=== PATIENT | female | born 1940 | race Two or more races ===

== ENCOUNTER → 2017-03-01 | Outpatient (CLI) | payer MEDICARE | END | disposition home or self-care (01) | LOC: CFH 13:25 | PROVIDERS: ATTEND Family Medicine | DX: R92.1 Mammographic calcification found on diagnostic imaging of breast (principal) | CPT/HCPCS: G0206 ==

== ENCOUNTER → 2018-06-25 | Outpatient (CLI) | payer MEDICARE | END | disposition home or self-care (01) | LOC: CFH 14:18 | PROVIDERS: ATTEND Family Medicine | DX: Z12.31 Encounter for screening mammogram for malignant neoplasm of breast (principal); Z12.2 Encounter for screening for malignant neoplasm of respiratory organs; I25.10 Atherosclerotic heart disease of native coronary artery without angina pectoris; F17.200 Nicotine dependence, unspecified, uncomplicated | CPT/HCPCS: 77067; G0297 ==

== ENCOUNTER 2019-09-10 05:07 | Emergency (ER) | payer MEDICARE ==
[~2019-09-10] VITALS: Ht 144.8 cm; Wt 53.6 kg
[2019-09-10 05:09] VITALS: BP 111/54
--- NOTE | 2019-09-10 05:32 | NUR ---
PT TO ED WITH C/O RIGHT SHOULDER PAIN AND SWELLING. REPORTS SHE HAD TWO FALLS IN THE PAST TWO DAYS WHERE SHE CAUGHT HERSELF WITH HER HANDS. REPORTS MINIMAL MOVEMENT OF RIGHT ARM D/T PAIN. PULSE AND SENSORY INTACT OF RIGHT UPPER EXTREMITY.
--- NOTE | 2019-09-10 06:46 | NUR ---
SLING APPLIED AND TRAMADOL GIVEN PER EMAR.
== END 2019-09-10 07:03 | disposition home or self-care (01) ==
LOC: ED 05:32
DX: S70.02XA Contusion of left hip, initial encounter (principal); M19.011 Primary osteoarthritis, right shoulder; E78.00 Pure hypercholesterolemia, unspecified; I10 Essential (primary) hypertension; W01.0XXA Fall on same level from slipping, tripping and stumbling without subsequent striking against object, initial encounter; Y93.89 Activity, other specified; Y92.89 Other specified places as the place of occurrence of the external cause; Y99.8 Other external cause status
CPT/HCPCS: 99283

== ENCOUNTER 2019-10-18 10:57 | Outpatient (CLI) | payer MEDICARE | END 2019-10-18 23:59 | disposition home or self-care (01) | LOC: CFH 10:57 | PROVIDERS: ATTEND Family Medicine | DX: Z12.31 Encounter for screening mammogram for malignant neoplasm of breast (principal) | CPT/HCPCS: 77067 ==

== ENCOUNTER → 2020-11-13 | Outpatient (CLI) | payer MEDICARE ==
[~2020-11-13] MED LIST: ACET-1600 PO; AMLO1CAP PO; CITA40TA5 PO; DIPH25CA61 PO; DIPH28.33 TP; LOVA20TA2 PO; METH49ST TD; MV M PO; SENN1TAB67 PO; SINEX PO; [UNRECOGNIZED DRUG - OTHER] TP
[2020-11-13 12:14] LABS: BASOPHILS % (AUTO) 1 % (0-1); EOSINOPHILS % (AUTO) 4 % (1-7); LYMPHOCYTES % (AUTO) 37 % (22-44); MEAN CORPUSCULAR HEMOGLOBIN 32.4 pg (27.0-34.8); MEAN CORPUSCULAR HGB CONC 33.6 g/dL (32.4-35.8); MEAN PLATELET VOLUME 8.5 fL (7.4-10.4); MONOCYTES % (AUTO) 7 % (2-9); NEUTROPHILS % (AUTO) 51 % (42-75); PLATELET COUNT 314 x10^3/uL (130-400); RED BLOOD COUNT 4.02 x10^6/uL (3.82-5.3); RED CELL DISTRIBUTION WIDTH 13.9 % (9.6-15.2)
[2020-11-13 12:18] LABS: MICROSCOPIC NOT IND
[2020-11-13 12:19] LABS: ALANINE AMINOTRANSFERASE 30 U/L (12-78); ALBUMIN 3.9 g/dL (3.4-5.0); ANION GAP 4 mmol/L (5-15); CALCIUM 9.2 mg/dL (8.5-10.1); CHLORIDE 108 mmol/L (98-107); CREATININE 1.05 mg/dL (0.55-1.02)
[2020-11-13 12:21] LABS: ALKALINE PHOSPHATASE 89 U/L (45-117); BILIRUBIN,TOTAL 0.4 mg/dL (0.2-1.0); TOTAL PROTEIN 8.2 g/dL (6.4-8.2)
== END | disposition home or self-care (01) ==
LOC: STAR 10:20
PROVIDERS: ATTEND Obstetrics & Gynecology
DX: Z01.818 Encounter for other preprocedural examination (principal); N81.4 Uterovaginal prolapse, unspecified
CPT/HCPCS: 36415; 80053; 81003; 85025; 93005

== ENCOUNTER 2020-11-17 10:13 | Observation (INO) | payer MEDICARE ==
[~2020-11-17] VITALS: Ht 144.8 cm; Wt 54.2 kg
[2020-11-17] MEDS ORDERED: EPINEPHRINE 1 MG/ML, 1ML ONE (11:05)
[2020-11-17] MEDS ORDERED: FLUORESCEIN SODIUM 500 MG/5 ML ONE (11:05)
[2020-11-17] MEDS ORDERED: LIDOCAINE/PF 1%, 30ML ONE (11:05)
[2020-11-17] MEDS ORDERED: CHLORHEXIDINE 15 ML UDC ONE (11:16)
[2020-11-17] MEDS ORDERED: CHLORHEXIDINE 15 ML UDC PO ONE (11:30)
[2020-11-17] MEDS ORDERED: LACTATED RINGERS 1,000 ML IV SCH (11:30)
[2020-11-17 11:37] VITALS: BP 113/68
[2020-11-17] MEDS ORDERED: EPHEDRINE 50 MG/ML, 1ML ONE (12:04)
[2020-11-17] MEDS ORDERED: ESTROGENS CONJUGATED VAG CRM 0.625MG/1G, 30GM ONE (14:14)
[2020-11-17] MEDS ORDERED: KETOROLAC 30 MG/1 ML ONE (14:21)
[2020-11-17] MEDS ORDERED: LIDOCAINE-MPF 2% ,5ML ONE (14:21)
[2020-11-17] MEDS ORDERED: NEOSTIGMINE 1 MG/ML, 10ML ONE (14:21)
[2020-11-17] MEDS ORDERED: PROPOFOL 10 MG/ML, 20ML ONE (14:21)
[2020-11-17] MEDS ORDERED: ONDANSETRON 2MG/ML, 2ML ONE (14:21)
[2020-11-17] MEDS ORDERED: DEXAMETHASONE 4 MG/ML, 1ML ONE (14:21)
[2020-11-17] MEDS ORDERED: ROCURONIUM 10MG/ML,5ML ONE (14:21)
[2020-11-17] MEDS ORDERED: CEFAZOLIN 1,000 MG ONE (14:21)
[2020-11-17] MEDS ORDERED: GLYCOPYRROLATE 0.2MG/1ML, 5ML ONE (14:21)
[2020-11-17] MEDS ORDERED: OXYcodone 5 MG/5 ML ORAL.SOL UDC PO PRN (14:30)
[2020-11-17] MEDS ORDERED: HYDROmorphone 1 MG/ML, 1ML INJ IVPush PRN (14:30)
[2020-11-17] MEDS ORDERED: PROMETHAZINE 25 MG/ML, 1ML IVPush PRN (14:30)
[2020-11-17] MEDS ORDERED: MEPERIDINE/PF 25MG/0.5ML IVPush PRN (14:30)
[2020-11-17] MEDS ORDERED: LABETALOL 5MG/ML, 20ML IV PRN (14:30)
[2020-11-17] MEDS ORDERED: LORazepam 2 MG/ML, 1ML IVPush PRN (14:30)
[2020-11-17] MEDS ORDERED: ACETAMINOPHEN 325 MG TABLET PO PRN (14:30)
[2020-11-17] MEDS ORDERED: FENTANYL PF 100 MCG/2ML IV PRN (14:30)
[2020-11-17] MEDS ORDERED: ALBUTEROL SULFATE 2.5 MG/3 ML NPPB PRN (14:30)
[2020-11-17] MEDS ORDERED: ACETAMINOPHEN 650 MG/20.3 ML UDC ONE (15:08)
[2020-11-17] MEDS ORDERED: OXYcodone 5 MG/5 ML ORAL.SOL UDC ONE (15:08)
[2020-11-17] MEDS ORDERED: ONDANSETRON 2MG/ML, 2ML IV PRN (16:30)
[2020-11-17] MEDS: LACTATED RINGERS 1,000 ML IV SCH ×2 (16:30→23:01)
[2020-11-17] MEDS ORDERED: NICOTINE 14MG/24 HR PATCH.TD24 TD SCH (19:30)
[2020-11-17 20:17] VITALS: BP 140/75
[2020-11-17] MEDS ORDERED: LOVASTATIN 20 MG TABLET PO SCH (21:00)
[2020-11-17] MEDS ORDERED: IBUPROFEN 600 MG TABLET PO SCH (21:00)
[2020-11-17 23:46] VITALS: BP 134/81
[2020-11-18 02:58] VITALS: BP 124/80
[2020-11-18] MEDS: OXYcodone/APAP 5/325MG TABLET PO PRN ×2 (04:26→13:07)
[2020-11-18 08:08] VITALS: BP 101/57
[2020-11-18] MEDS: LACTATED RINGERS 1,000 ML IV SCH (08:10)
[2020-11-18] MEDS ORDERED: CITALOPRAM 20 MG TABLET PO SCH (09:00)
[2020-11-18] MEDS ORDERED: BENAZEPRIL 20 MG TABLET PO SCH (09:00)
[2020-11-18] MEDS ORDERED: AMLODIPINE 10 MG TAB PO SCH (09:00)
[2020-11-18 13:14] VITALS: BP 107/57
[2020-11-18] MEDS ORDERED: OXYC1TAB14 PO (14:25)
[2020-11-18] MEDS ORDERED: IBUP-1222 PO ×2 (16:04→16:25)
[2020-11-18] MEDS ORDERED: DOCU-131 PO (16:09)
[2020-11-18] MEDS ORDERED: IBUP200T49 PO (16:31)
== END 2020-11-18 17:10 | disposition home or self-care (01) ==
LOC: OUT 10:13 → 4NE 16:06 → OUT 21:36 → INTOOBSV 22:04 → 4NE 22:04 → UNDODISIN 11-18 17:10
PROVIDERS: ADMIT Obstetrics & Gynecology; ATTEND Obstetrics & Gynecology
DX: N81.4 Uterovaginal prolapse, unspecified (principal); Z20.822 Contact with and (suspected) exposure to COVID-19; K62.3 Rectal prolapse; I10 Essential (primary) hypertension; F32.9 Major depressive disorder, single episode, unspecified; E78.5 Hyperlipidemia, unspecified; J44.9 Chronic obstructive pulmonary disease, unspecified; F17.210 Nicotine dependence, cigarettes, uncomplicated; Z88.0 Allergy status to penicillin; Z79.899 Other long term (current) drug therapy; Z90.710 Acquired absence of both cervix and uterus
CPT/HCPCS: 52000; 57210; 58263; 87635; 88305; 96374; G0378; J0171; J0690; J1100; J1885; J2405; J2704; J2710; J3010; J3490; J7120